=== PATIENT | male | born 1940 | race Two or more races ===

== ENCOUNTER 2020-08-03 21:09 | Emergency (ER) | payer OTHER ==
[~2020-08-03] VITALS: Ht 170.2 cm; Wt 68.5 kg
[2020-08-03 21:11] VITALS: BP 122/61
--- NOTE | 2020-08-03 21:19 | NUR ---
PATIENT CAME TO ER BED 4 C/O ANXIETY ATTACK. PATIENT TOOK A SPRAY OF NARCAN IN HIS NOSTRIL AND WAS HAVING HEADACHE WITH TINGLING SENSATION THROUGHOUT HIS NECK AND ARMS, PER RA REPORT. PATIENT IS AWAKE. NOT ANSWERING ANY OF MY QUESTIONS. PATIENT SUDDENLY SCREAMED AFTER STARING BLANKLY. PATIENT IS BREATHING EVENLY AND UNLABORED ON ROOM AIR. PATIENT IS ANXIOUS. CONNECTED TO THE MONITOR.
[2020-08-03] MEDS ORDERED: ACETAMINOPHEN ES 500 MG TABLET ONE (21:30)
[2020-08-03] MEDS ORDERED: ACETAMINOPHEN ES 500 MG TABLET PO ONE (21:30)
--- NOTE | 2020-08-03 21:39 | NUR ---
CALLED RONY ALVAREZ [phone] TO PICK PATIENT UP. STATES THAT HE WILL TAKE ROUGHLY 20MINUTES TO ARRIVE TO [place].
--- NOTE | 2020-08-03 21:56 | NUR ---
IV removed. Catheter intact and site benign. Pressure and 4x4 applied to site. No bleeding noted.
--- NOTE | 2020-08-03 22:19 | NUR ---
PATIENT IS PICKED UP BY RONY ALVAREZ.
--- NOTE | 2020-08-03 22:19 | NUR ---
Patient discharged to home in stable condition. Written and verbal after care instructions given. Patient verbalizes understanding of instruction.
== END 2020-08-03 22:21 | disposition home or self-care (01) ==
LOC: ER 21:10
DX: R11.0 Nausea (principal); R61 Generalized hyperhidrosis; T50.7X5A Adverse effect of analeptics and opioid receptor antagonists, initial encounter; J44.9 Chronic obstructive pulmonary disease, unspecified; K21.9 Gastro-esophageal reflux disease without esophagitis; E11.9 Type 2 diabetes mellitus without complications; Z85.118 Personal history of other malignant neoplasm of bronchus and lung; Y92.89 Other specified places as the place of occurrence of the external cause